=== PATIENT | female | born 1965 | race Caucasian/White ===

== ENCOUNTER 2020-05-05 12:45 | Emergency (ER) | payer SELFPAY ==
--- NOTE | 2020-05-05 14:21 | ED.PDOC ---
History of Present Illness - General Chief Complaint: Headache Stated Complaint: headache/diarrhea/body aches Time Seen by Provider: 05/05/20 13:00 Source: patient Exam Limitations: no limitations - History of Present Illness Initial Comments: The patient is a 55-year-old female presented to the emergency room secondary to 3 days of symptoms of headache followed by some nausea and vomiting now followed by mild diarrhea. She does feel achy. 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 No shortness of breath. No cough. No syncope. No runny nose or sore throat. She did have a negative coronavirus test 1 day before the symptoms started. No altered mental status. No nuchal rigidity. No trauma. No focal head pain. No blood thinner use. Timing/Duration: other - 3 days Severity: moderate Improving Factors: nothing Worsening Factors: nothing Associated Symptoms: loss of appetite, malaise, nausea/vomiting, weakness Allergies/Adverse Reactions: Allergies Penicillins Adverse Reaction (Verified 05/05/20 13:02) Home Medications: Ambulatory Orders Ondansetron Odt [Zofran ODT] 4 mg PO Q8HR PRN #5 tab 05/05/20 Review of Systems - Review of Systems Constitutional: States: malaise EENTM: States: no symptoms reported Respiratory: States: no symptoms reported Cardiology: States: no symptoms reported Gastrointestinal/Abdominal: States: diarrhea, nausea Genitourinary: States: no symptoms reported Musculoskeletal: States: no symptoms reported Skin: States: no symptoms reported Neurological: States: headache Endocrine: States: no symptoms reported All other Systems: No Change from Baseline Past Medical History (General) - Patient Medical History Hx Stroke: Yes Surgical History: no surgical history - Social History Hx Alcohol Use: Yes - Activities of Daily Living Hospice Agency (if applicable):: None - Female History Patient is a Female of Child Bearing Age (10 -59 yrs old): No Family Medical History - Family History Mother Family History: Unknown Physical Exam - Physical Exam General Appearance: Alert, Comfortable, No apparent distress Eye Exam: bilateral normal Ears, Nose, Throat: hearing grossly normal, normal pharynx Neck: full range of motion, supple Respiratory: lungs clear, normal breath sounds, no respiratory distress, no accessory muscle use Cardiovascular/Chest: normal peripheral pulses, regular rate, rhythm, no edema Peripheral Pulses: radial,right: 2+, radial,left: 2+ Gastrointestinal/Abdominal: non tender - No rebound or peritoneal signs. 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 She has tested negative for coronavirus and influenza. Urinalysis is reassuring. She is to keep her self well-hydrated and maintain a bland diet. Periodic dosing of Imodium may be warranted to control diarrhea. 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 She needs to try and drink at least a gallon and a half of water a day for the next 3 days. She can take [id number] Pepcid once daily as well to help reduce gastritis symptoms. ER warnings are given. She will be written for a short course of Zofran for as needed use to control any nausea or vomiting. kirt marcus [id number] - Results/Orders Results/Orders: The patient tested negative for coronavirus and influenza here today. Laboratory Tests 05/05/20 13:27 Urine Color Yellow Urine Appearance Clear Urine pH 5.5 Ur Specific Kimberly >= 1.030 Urine Protein Negative Urine Glucose (UA) Negative Urine Ketones Negative Urine Blood Negative Urine Nitrite Negative Urine Bilirubin Negative Urine Urobilinogen 0.2 Ur Leukocyte Esterase Trace H Urine RBC 0 Urine WBC 0-1 Ur Epithelial Cells 1-3 Urine Bacteria Rare Departure - Departure Clinical Impression: Viral gastroenteritis, Dehydration, mild Disposition: Discharge to Home or Self Care Condition: Fair Departure Forms: ED Discharge - Pt. Copy, Patient Portal Self Enrollment Instructions: DI for Headache, Viral Gastroenteritis, Adult (DC) Diet: bland diet Activity: increase activity as tolerated Referrals: TOM POWELL [Primary Care Provider] - 1-2 Weeks Prescriptions: Ondansetron Odt [Zofran ODT] 4 mg PO Q8HR PRN #5 tab PRN Reason: Nausea--Moderate Home Medications: Ambulatory Orders Ondansetron Odt [Zofran ODT] 4 mg PO Q8HR PRN #5 tab 05/05/20 Additional Instructions: The patient is a 55-year-old female presented emergency room secondary to what appears to be most likely a viral gastroenteritis. She has tested negative for coronavirus and influenza. Urinalysis is reassuring. She is to keep her self well-hydrated and maintain a bland diet. Periodic dosing of Imodium may be warranted to control diarrhea. 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 She needs to try and drink at least a gallon and a half of water a day for the next 3 days. She can take [id number] Pepcid once daily as well to help reduce gastritis symptoms. ER warnings are given. She will be written for a short course of Zofran for as needed use to control any nausea or vomiting.
[2020-05-05 14:36] VITALS: BP 124/55; TEMP 97.3; O2SAT 100
== END 2020-05-05 14:35 | disposition home or self-care (01) ==
LOC: ER 12:45
DX: A08.4 Viral intestinal infection, unspecified (principal); E86.0 Dehydration; R51.9 Headache, unspecified; Z20.828 Contact with and (suspected) exposure to other viral communicable diseases; Z88.0 Allergy status to penicillin; Z86.73 Personal history of transient ischemic attack (TIA), and cerebral infarction without residual deficits